=== PATIENT | female | born 1945 | race Caucasian/White ===

== ENCOUNTER → 2017-07-14 08:31 | Outpatient (CLI) | payer MEDICARE, SELFPAY ==
--- NOTE | 2017-07-14 | XR_ITS ---
XR hip RT 2-3V w/pelvis HISTORY: ITS.REASON: RT HIP PAIN..LUNG CA..TO GO ALONG WITH BONE SCAN ORDERING PHYSICIAN: Perez Elizondo PATIENT AGE: 72 years COMPARISON: None FINDINGS: No fracture or dislocation is evident. Bone plates are present over the lower lumbar spine with multiple sutures. Lucency is present in the right SI region superiorly consistent with prior bone harvesting site as seen on the prior CT scan. There is a 15 mm sclerotic focus in the right ischio tuberosity. This has been present on previous CT scans and is consistent with a bone island. There are osteoarthritic changes of the hips. IMPRESSION: No obvious bony destructive process, fracture, or dislocation. See above for detail
--- NOTE | 2017-07-14 08:35 | NM_ITS ---
NM bone scan whole body CLINICAL INDICATION: Lung cancer, evaluate for metastasis. Right hip pain ITS.REASON: MALIGNANT NEOPLASM OF RT BRONCHUS ORDERING PHYSICIAN: Perez Elizondo PATIENT AGE: 72 years DOSE: 26.8 mCi technetium MDP COMPARISON: Radiograph of the same day of the pelvis and right hip 07/14/2017 FINDINGS: S type curvature involves the thoracic spine and lumbar spine with upper thoracic curvature convex right, lower thoracic curvature convex left, and lumbar curvature convex right. Patient has had prior fusion of the lower lumbar spine with decrease in density over lumbar spine due to attenuation from the metallic bone plates. There is a area of decreased activity involving the right SI region. Review CT scan shows a defect in the bone at this area consistent with an area of bone harvesting site. Increased activity is present in the right acetabular region but is felt to be related to arthritic change with osteosclerosis at this area. There is slight increased activity in the left hip as well with osteoarthritis. No convincing evidence of bony metastasis. IMPRESSION: No convincing evidence of bony metastasis. Osteoarthritic changes of the hips and postsurgical changes of the right sacroiliac region and lumbar spine
[2017-07-14 09:53] LABS: Blood Urea Nitrogen 14 mg/dL (7-18); Creatinine,Serum 0.89 mg/dL (0.55-1.02); Estimated Glomerular Filt Rate 63 ml/min (>60); GFR (African American) 76 ML/MIN (>60)
--- NOTE | 2017-07-14 14:05 | MR_ITS ---
MR head/brain wo/w con HISTORY: Mental status change. History of lung carcinoma, evaluate for metastatic disease. ITS.REASON: MALIGNANT NEOPLASM OF RIGHT MAIN BRONCHUS ORDERING PHYSICIAN: Perez Elizondo PATIENT AGE: 72 years COMPARISON: None TECHNIQUE: Standard multiplanar multiecho sequences are performed without and with gadolinium enhancement. FINDINGS: There are multiple bilateral enhancing lesions involving the cerebrum and cerebellum consistent with metastatic disease. The largest mass has a cystic appearance and is in the right frontal lobe measuring 3.4 x 3.4 cm showing peripheral enhancement somewhat nodular with a mild amount of mass effect and peritumoral edema no midline shift however is evident. Numerous other enhancing lesions are present within Largest lesion in the left parieto-occipital junction at 2.3 cm with a mild amount of surrounding edema. There is at least one cerebellar region in the medial aspect of the right cerebellum measuring 13 mm. There is no midline shift or eminent herniation. No brainstem lesions evident. There is a lesion involving the left aspect of the splenium of the corpus callosum measuring 17 mm. No evidence of acute infarction. No acute intracranial hemorrhage. Hemo sensitive images obtained showing no evidence of acute intracranial hemorrhage. 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
== END ==
PROVIDERS: Family Provider Family Medicine; PCP Family Medicine; Visit Provider Internal Medicine Hematology & Oncology
DX: C34.01 Malignant neoplasm of right main bronchus (principal); M25.511 Pain in right shoulder; R41.82 Altered mental status, unspecified
CPT/HCPCS: 36415; 70553; 73502; 78306; 82565; 84520; A9503; A9576; J1642

== ENCOUNTER → 2017-08-19 14:15 | Outpatient (CLI) | payer MEDICARE, SELFPAY ==
--- NOTE | 2017-08-19 14:22 | XR_ITS ---
XR hip RT 2-3V w/pelvis COMPARISON: AP pelvis and right hip views 07/14/2017 and bone scan 07/14/2017 HISTORY: Pelvic and right hip pain, known lung carcinoma TECHNIQUE: AP pelvis cone-down AP and frog-leg views right hip FINDINGS: The orthopedic hardware lower lumbar spine is again noted. Small mildly sclerotic lesion of the right inferior pubic ramus is noted and is stable from previous exam and likely a small bone island. There are no definite lytic or blastic lesions identified. There is prominent asymmetrical joint space narrowing of the right hip. The SI joints and symphysis pubis per normal. IMPRESSION: Moderate osteoarthritic change right hip possibly accounting for pain, stable mildly sclerotic focus right inferior pubic ramus likely bone island.
== END ==
PROVIDERS: PCP Family Medicine; Visit Provider Internal Medicine Hematology & Oncology
DX: C79.31 Secondary malignant neoplasm of brain (principal); C34.01 Malignant neoplasm of right main bronchus; T82.868A Thrombosis due to vascular prosthetic devices, implants and grafts, initial encounter
CPT/HCPCS: 73502

== ENCOUNTER → 2017-09-07 11:43 | Outpatient (CLI) | payer MEDICARE, SELFPAY ==
[2017-09-07 12:07] LABS: Basophils # 0.1 K/mm3 (0-0.2); Basophils % 0.6 % (0.1-2.0); Eosinophils # 0.2 K/mm3 (0.0-0.4); Hematocrit 36.3 % (37.0-47.0); Hemoglobin 10.9 g/dL (12.2-16.2); Lymphocytes # 0.5 K/mm3 (0.7-4.5); Lymphocytes % 4.7 K/mm3 (10-50); Mean Corpuscular Hemoglobin 27.2 pg (27.0-31.2); Mean Corpuscular Volume 90.7 fl (81-99); Monocytes # 0.3 K/mm3 (0.1-1.0); Neutrophils # 8.8 K/mm3 (1.8-7.8); Neutrophils % 89.7 % (37.0-80.0); Platelet Count 420 K/mm3 (142-424); Red Blood Count 4.01 M/mm3 (4.20-5.40); Red Cell Distribution Width 18.2 % (11.5-17.5); White Blood Count 9.8 K/mm3 (4.8-10.8)
[2017-09-07 12:10] LABS: MANUAL DIFFERENTIAL MANUAL DIFFERENTIAL (MANUAL DIFF)
[2017-09-07 14:35] LABS: Eosinophils % 2 % (0-3); Lymphocytes % 2 % (10-50); Monocytes % 3 % (2-9); Neutrophils % 93 % (42-76); Platelet Estimate Normal; Total Cells Counted 100
[2017-09-07 14:36] LABS: Anisocytosis 1+; Hypochromasia 1+
== END ==
PROVIDERS: Visit Provider Internal Medicine Hematology & Oncology
DX: C34.90 Malignant neoplasm of unspecified part of unspecified bronchus or lung (principal)
CPT/HCPCS: 36415; 85007; 85025